=== PATIENT | female | born 1985 | race American Indian/Alaskan Native ===

== ENCOUNTER 2017-03-15 21:47 | Outpatient (CLI) | payer MEDICAID ==
[2017-03-15 22:09] VITALS: BP 108/68
== END 2017-03-15 22:45 | disposition home or self-care (01) ==
LOC: TRG 21:47
PROVIDERS: ATTEND Obstetrics & Gynecology
DX: O47.1 False labor at or after 37 completed weeks of gestation (principal); Z3A.37 37 weeks gestation of pregnancy